=== PATIENT | male | born 1965 | race African-American/Black ===

== ENCOUNTER 2022-07-07 03:26 | Emergency (ER) | payer OTHER ==
[~2022-07-07] VITALS: Ht 165.1 cm; Wt 84.0 kg
[2022-07-07 03:32] VITALS: BP 189/108
== END 2022-07-07 04:45 | disposition left against medical advice (07) ==
LOC: ER 03:26
DX: Z53.21 Procedure and treatment not carried out due to patient leaving prior to being seen by health care provider (principal)